=== PATIENT | female | born 1975 | race Two or more races ===

== ENCOUNTER 2016-10-08 18:58 | Emergency (ER) | payer SELFPAY ==
[2016-10-08 20:37] LABS: ABSOLUTE NEUTROPHIL COUNT 9.4 K/mm3 (1.8-7.7); BASO % 0.2 % (0.2-1.0); EOS % 0.1 % (0.9-2.9); HEMOGLOBIN 10.2 gm/l (12.0-16.0); IMM NEUT # 0.1 K/mm3 (0-0.2); IMM NEUT% 0.6 % (0-1); LYMPH # 0.9 (1.0-4.8); LYMPH % 8.7 % (15-45); MEAN CELL VOLUME 87.5 fl (81.0-99.0); MEAN CORPUSCULAR HEMOGLOBIN 29.7 pg (27.0-31.0); MEAN PLATELET VOLUME 10.5 fl (7.4-10.4); MONO # 0.2 (0.0-0.8); MONO % 1.6 % (4-12); NEUT % 88.8 % (43-75); PLATELET COUNT 310 K/mm3 (130-400); RED CELL DISTRIBUTION WIDTH 13.2 % (11.5-14.5)
[2016-10-08 21:02] LABS: ALB/GLOB RATIO 1.4 (>1.0); ALBUMIN 4.1 gm/dL (3.5-5.7); CALCIUM 9.3 mg/dL (8.6-10.3)
[2016-10-08 22:58] LABS: SPECIFIC GRAVITY 1.025 (1.001-1.030); URINE BILIRUBIN NEGATIVE (NEGATIVE); URINE BLOOD 1+ (NEGATIVE); URINE GLUCOSE (UA) 3+ (NEGATIVE); URINE LEUKOCYTE ESTERASE NEGATIVE (NEGATIVE); URINE NITRITE NEGATIVE (NEGATIVE); URINE PROTEIN 1+ (NEGATIVE); URINE UROBILINOGEN 1 mg/dL (0-1 mg/dl)
[2016-10-08 22:59] LABS: URINE APPEARANCE CLEAR; URINE COLOR YELLOW
[2016-10-08 23:13] LABS: URINE BACTERIA FEW; URINE EPITHELIAL CELLS FEW /hpf; URINE MUCUS 2+; URINE WBC 0-1 /hpf
--- NOTE | 2016-10-09 08:18 | US ---
PELVIC COMPLETE, TRANSVAGINAL ECHOGRAPHY COMPARISON: None. HISTORY: 41 years old, gestational age 9 weeks 0 days, with vaginal bleeding since 10/03/2016. NICK 05/13/2017. . Technique: Transabdominal and transvaginal. FINDINGS: Uterus: Normal Endometrium: Thickness 21 mm with scattered cystic areas. No gestational sac. Right ovary: 3.7 x 1.9 x 3.5 cm. Normal blood flow. Left ovary: 3.4 x 1.5 x 2.8 cm. Normal blood flow. Adnexa mass: None Fluid: None. IMPRESSION: 1. of unknown location and viability. Preliminary report by [facility] radiologist Asuncion Cruz MD 10/08/2016 at 23:18
== END 2016-10-09 01:43 | disposition home or self-care (01) ==
LOC: ED 18:58
DX: O03.9 Complete or unspecified spontaneous abortion without complication (principal); O24.111 Pre-existing type 2 diabetes mellitus, in pregnancy, first trimester; E11.9 Type 2 diabetes mellitus without complications; Z3A.08 8 weeks gestation of pregnancy; Z79.84 Long term (current) use of oral hypoglycemic drugs